=== PATIENT | female | born 1945 | race Caucasian/White ===

== ENCOUNTER 2022-06-28 10:55 | Outpatient (CLI) | payer MEDICARE, OTHER, SELFPAY ==
[2022-06-28 20:33] LABS: Calcium 9.6 mg/dL (8.4-10.2)
[2022-06-28 20:56] LABS: Creatinine Urine 52.9 mg/dL; Total Protein Urine Random 8 mg/dL; Ur Ttl Prot Creatinine Ratio 0.15 mg/mg (0-0.20)
[2022-06-28 21:45] LABS: Vitamin D 25 Hydroxy < 12.8 ng/mL
== END 2022-06-28 10:56 | disposition home or self-care (01) ==
PROVIDERS: Visit Provider Obstetrics & Gynecology
DX: M85.80 Other specified disorders of bone density and structure, unspecified site (principal)
CPT/HCPCS: 36415; 82306; 82310; 82570; 84156